=== PATIENT | male | born 1975 | race Caucasian/White ===

== ENCOUNTER 2024-10-07 09:32 | Outpatient (OUT) | payer BC, SELFPAY ==
--- NOTE | 2024-10-07 09:40 | XR_ITS ---
[facility] [place] [id number] Patient Name: BLADIMIR LYLES MRN: [id number] date: 1975 Sex: M Assigned Patient Location: [facility] Current Patient Location: [facility] Accession/Order Number: [id number] Exam Date: 10/07/2024 15:15 Report Date: 10/07/2024 15:16 At the request of: GURPREET PIPER MD Procedure: XR shoulder LT min 2V LEFT SHOULDER - 3 views CLINICAL HISTORY: Left Shoulder Pain, decreased range of motion and tingling at the fingers over the past month. No reported injury. COMPARISON: None AP, Y and Grashey views were obtained. There is no evidence of fracture or dislocation. There is mild hypertrophy at the acromioclavicular joint and inferior glenoid . There is minimal sclerosis of greater tuberosity. There are no significant soft tissue abnormalities. XR/XR shoulder LT min 2V IMPRESSION: MILD DEGENERATIVE CHANGE. NO ACUTE BONY FINDINGS. Impression dictated by: Razia Ward M.D.10/07/2024 3:16 PM [facility] Electron[facility] authenticated by: [id number] Y Date: 10/07/2024 15:16
== END 2024-10-07 09:33 | disposition home or self-care (01) ==
LOC: RAD 09:35
PROVIDERS: PCP Family Medicine; Visit Provider Family Medicine
DX: M25.512 Pain in left shoulder (principal)
CPT/HCPCS: 73030

== ENCOUNTER 2025-02-19 07:08 | Outpatient (OUT) | payer BC, SELFPAY ==
--- OUTSIDE RECORDS SUMMARY | 2025-02-19 07:11 | XMS_ITS | CCD ---
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 Name Role Phone FELIZ ., DR VÁZQUEZ Primary Care Unavailable HOY ., DR VÁZQUEZ Admitting Unavailable HOY ., DR VÁZQUEZ Attending Unavailable HOY ., DR VÁZQUEZ Attending Unavailable HOY ., DR VÁZQUEZ Consulting Unavailable HOY ., DR VÁZQUEZ Primary Care Unavailable HOY ., DR VÁZQUEZ Admitting Unavailable HOY ., DR VÁZQUEZ Consulting Unavailable HOY ., DR VÁZQUEZ Primary Care Unavailable HOY ., DR VÁZQUEZ Admitting Unavailable HOY ., DR VÁZQUEZ Attending Unavailable HOY, GURPREET M Referring Unavailable OLIVERYBETTINAGURPREET M Primary Care Unavailable HOY, GURPREET M Referring Unavailable HOY, GURPREET M Primary Care Unavailable Problems Active Problems Problem Classification Problem Date Documented Da te Episodic/Chronic Diabetes mellitus without complication (4 sources) Type 2 diabetes mellitus without complications; Translations: [TYPE 2 DM WITHOUT COMPLICATIONS] Onset: 12-04-2022 Chronic Other non-traumatic joint disorders (1 source) Pain in left shoulder; Translations: [Pain in left shoulder] Onset: 10-23-2024 Episodic Past or Other Problems Problem Classification Problem Date Documented Da te Episodic/Chronic Diabetes mellitus without complication (4 sources) Other abnormal glucose; Translations: [OTHER ABNORMAL GLUCOSE] Onset: 03-03-2022 Episodic Results Test Name Value Interpretation Reference Range Facility MR ARTHROGRAM SHOULDER LT W CONTon 10-27-2024 MR ARTHROGRAM SHOULDER LT W CONT MR ARTHROGRAM SHOULDER LT W CONT MR ARTHROGRAM LEFT SHOULDER CLINICAL INFORMATION: Shoulder pain.. COMPARISON: None. PROCEDURE: Routine MRI arthrogram of the shoulder was obtained. Axial, oblique coronal, and oblique sagittal long TR images of the left shoulder were obtained. FINDINGS: ROTATOR CUFF AND ASSOCIATED STRUCTURES Biceps Tendon: The biceps tendon is normally situated within the bicipital groove. No complete or partial biceps tendon tear is present. Rotator cuff: There is no complete or bursal/articular sided partial rotator cuff tear. The subscapularis constituent of the rotator cuff is intact. Musculature: There is no muscular tear, contusion, or atrophy. Bursa: No bursal effusion or thickening is seen. OSSEOUS STRUCTURES Acromioclavicular joint: There are [id number] degenerative changes of the acromioclavicular joint. A type 2 acromion configuration is noted. There is no anterior or lateral acromial downsloping. Bones: Prominent areas of signal change in the humeral head above the level of the coracoid may be due to a previous healed fracture deformity rather than the bare area off the humeral head. Marked osseous irregularity and remodeling of the anterior glenoid may be reflective of a partially osseous Bankart abnormality. Remodeling of the anteromedial femoral head adjacent to the inferior glenoid. GLENOHUMERAL JOINT Joint fluid: Articular contrast. Cartilage: Mild cartilage irregularity in inferior glenoid Labrum: The labrum demonstrates signal abnormality of an inferior component seen on 5/10, 2/10. Other support structures: As made of a significant abnormality of the anterior glenoid and the inferior glenoid likely from previous trauma and a labral ligamentous Bankart as well as osseous Bankart. IMPRESSION: 1. No rotator cuff tendon tear. 2. Potential previous Bankart injury and healed fractures deformity. Bankart injury is likely a combination of labral ligamentous and osseous changes anterior inferior predominantly. 3. No other abnormality of note. Finalized by Gianni Guerin MD on 10/27/2024 3:18 PM Normal [facility] [place] MR/CT ARTHROGRAM SHOULDER LT W GUIDon 10-24-2024 [place] MR/CT ARTHROGRAM SHOULDER LT W GUID [place] MR/CT ARTHROGRAM SHOULDER LT W GUID [place] MR/CT ARTHROGRAM SHOULDER LT W GUID 10/23/2024 1:19 PM SIGNS AND SYMPTOMS: Left shoulder pain, unspecified chronicity TECHNIQUE: Injection of the left shoulder under fluoroscopic guidance for MR arthrography. Procedure and Findings: Risks, benefits, indications, and alternatives to the procedure were explained to the patient. Risks include bleeding and infection. All questions were answered. Both written and verbal informed consent was obtained. The effected joint, at the appropriate area of interest, was marked using fluoroscopic guidance and overlying skin prepped and draped in usual sterile fashion. Lidocaine 1% was used for local and deep anesthesia. A 22-gauge 3-1/2 inch spinal needle was advanced under fluoroscopic guidance. Proper needle placement was confirmed with 2 mL Omnipaque. Approximately 10 mL of a mixture containing 10 mL of sterile saline, 10 mL Omnipaque 300 and 0.08 mL of ProHance were then introduced. Needle was removed and a sterile bandage applied. Patient tolerated the procedure well without immediate complication. Reference air kerma: 13.745 mGy . IMPRESSION: Successful arthrogram of the left shoulder. MRI report to follow. Finalized by Diego Marte MD on 10/24/2024 9:31 AM Normal [facility] GLYCOHEMOGLOBIN A1Con 2022 ADA RECOMMENDATION SEE BELOW Normal [facility] Comment on above: Result Comment: ADA RECOMMENDED LIMIT 4.0 - 6.0 ADA THERAPEUTIC TARGET < 7.0 ACTION SUGGESTED > 7.0 Performed By: #### A 1C #### [facility] [address] [place] [address] Dr. Maria R Sni Glucose [Mass/Vol] 123 mg/dL Normal [facility] Comment on above: Performed By: #### A 1C #### [facility] [address] [place] [address] Dr. Maria R Sin HbA1c (Bld) [Mass fraction] 5.9 % Normal 4.5-6.2 [facility] Comment on above: Performed By: #### A 1C #### [facility] [address] [place] [address] Dr. Maria R Sin GLYCOHEMOGLOBIN A1Con 2021 ADA RECOMMENDATION SEE BELOW Normal [facility] Comment on above: Result Comment: ADA RECOMMENDED LIMIT 4.0 - 6.0 ADA THERAPEUTIC TARGET < 7.0 ACTION SUGGESTED > 7.0 Performed By: #### A 1C #### [facility] [address] [place] [address] Dr. Maria R Sin Glucose [Mass/Vol] 140 mg/dL Normal [facility] Comment on above: Performed By: #### A 1C #### [facility] [address] [address] [address] Maria R Sin HbA1c (Bld) [Mass fraction] 6.5 % Critically high 4.5-6.2 [facility] Comment on above: Performed By: #### A 1C #### [facility] [address] [address] [address] Maria R Sin Encounters Encounter Date Encounter Type Care Provider Facility Start: 10-23-2024 End: 10-23-2024 ambulatory GURPREET PIPER [facility] Start: 12-04-2022 End: 12-05-[address] GURPREET PIPER . Facility: Start: 08-15-2022 End: 08-21-[address] GURPREET PIPER . Facility: Start: 03-03-2022 End: 03-04-[address] GURPREET PIPER . Facility: Payers Date Payer Category Payer Unknown [id number] [id number] [id number] 1975 Unknown [id number] [id number] [id number] 1975 Unknown [id number] 2.16.84 [id number] 1975 Unknown [id number] [id number] 1975 Unknown [id number] [id number]. [id number] 1957 Unknown [id number] Summary Purpose Family History No Family History Records FoundNo Family History Records Found Advance Directives No Advanced Directives Records FoundNo Advanced Directives Records Found Additional Source Comments (unrecognized sect ion and content) No Status Records FoundNo Status Records Found INFORMATION SOURCE (unrecogn ized section and content) DATE CREATED AUTHOR 12/08/[address] [facility] DATE CREATED AUTHOR AUTHOR'S ORGANIZ ATION 10/28/2024 [facility] FOR RECORDS PERTAINING TO PATIENTS WHO ARE OR HAVE BEEN ENROLLED IN A CHEMICAL DEPENDENCY/SUBSTANCEABUSE PROGRAM, SOME INFORMATION MAY BE OMITTED. This clinical summary was aggregated from multiple sources. Caution should be exercised in using it in the provision of clinical care. This summary normalizes information from multiple sources, and as a consequence, information in this document may materially change the coding, format and clinical context of patient data. In addition, data may be omitted in some cases. CLINICAL DECISIONS SHOULD BE BASED ON THE PRIMARY CLINICAL RECORDS. [facility] provides no warranty or guarantee of the accuracy or completeness of information in this document.
[2025-02-19 07:28] LABS: Hematocrit 48.7 % (42.0-54.0); Hemoglobin 16.4 g/dL (14.0-18.0); Immature Granulocytes Abs Auto 0.06 10^3/uL (0.00-0.03); Immature Granulocytes Pct Auto 0.6 % (0.0-0.5); Lymphocytes Absolute Auto 2.2 10^3/uL (1.2-3.8); Mean Corpuscular HGB Conc 33.7 g/dL (29.9-35.2); Mean Corpuscular Hemoglobin 27.7 pg (25.9-34.0); Mean Corpuscular Volume 82.3 fL (80.0-94.0); Platelet Count 266 10^3/uL (150-450); Red Blood Count 5.92 10^6/uL (4.70-6.10); White Blood Count 9.7 10^3/uL (4.0-11.0)
[2025-02-19 08:49] LABS: Alanine Aminotransferase 28 U/L (16-63); Albumin Globulin Ratio 0.9; Albumin Level 3.7 g/dL (3.4-5.0); Alkaline Phosphatase 117 U/L (46-116); Anion Gap 14.2; Aspartate Amino Transferase 12 U/L (15-37); Blood Urea Nitrogen 26.0 mg/dL (7.0-18.0); Calcium 9.2 mg/dL (8.5-10.1); Carbon Dioxide 27.0 mmol/L (21.0-32.0); Chloride 106 mmol/L (98-107); Cholesterol 191 mg/dL (<=200); Estimated GFR (African America >60 (>=60 mL/min/1.73m^2); Estimated GFR (Non-African Ame >60 (>=60 mL/min/1.73m^2); Free T3 2.39 pg/mL (2.18-3.98); Globulin 3.9 g/dL; Glucose 101 mg/dL (74-106); HDL Cholesterol 33 mg/dL (40-60); Potassium 4.2 mmol/L (3.5-5.1); Sodium 143 mmol/L (136-145); Thyroid Stimulating Hormone 1.608 uIU/mL (0.358-3.740); Total Protein 7.6 g/dL (6.4-8.2); Triglycerides 235 mg/dL (<=150); VLDL CHOLESTEROL 47.0 mg/dL
== END 2025-02-19 07:09 | disposition home or self-care (01) ==
LOC: LAB 07:09
PROVIDERS: PCP Family Medicine; Visit Provider Family Medicine
DX: Z00.00 Encounter for general adult medical examination without abnormal findings (principal); Z12.5 Encounter for screening for malignant neoplasm of prostate
CPT/HCPCS: 36415; 80053; 80061; 83036; 84436; 84443; 84481; 85025; G0103